=== PATIENT | female | born 2000 | race Caucasian/White ===

== ENCOUNTER 2019-03-15 10:42 | Inpatient (IN) | payer MEDICAID, OTHER ==
[~2019-03-15] VITALS: Ht 162.6 cm; Wt 117.0 kg
[2019-03-15 10:56] VITALS: BP 144/82
--- NOTE | 2019-03-15 11:10 | NUR ---
Note undone in EDM - 03/15/19 at 1220 by [facility] PT C/O ovary cyst removal IN . Pt felt suprapubic region pain since two days ago, went to urgent care yesterday. No redness noted but see some secration. BURNING 05/15. DENIES N/V/D; SKIN IS PINK/WARM/DRY; AAOX4 WITH EVEN AND STEADY GAIT; PT DENIES ANY FEVER, CP, SOB, OR COUGH AT THIS TIME; PATIENT STATES PAIN OF 0/10 AT THIS TIME; VSS; PATIENT POSITIONED FOR COMFORT; HOB ELEVATED; BEDRAILS UP X1; BED DOWN. ER MADE AWARE OF PT STATUS.
--- NOTE | 2019-03-15 11:10 | NUR ---
PT C/O ovary cyst removal IN . Pt felt LOWER ABDOMINAL pain since two days ago, went to urgent care yesterday. No redness noted but see some secration. BURNING 05/15. DENIES N/V/D; SKIN IS PINK/WARM/DRY; AAOX4 WITH EVEN AND STEADY GAIT; PT DENIES ANY FEVER, CP, SOB, OR COUGH AT THIS TIME; PATIENT STATES PAIN OF 0/10 AT THIS TIME; VSS; PATIENT POSITIONED FOR COMFORT; HOB ELEVATED; BEDRAILS UP X1; BED DOWN. ER MD MADE AWARE OF PT STATUS.
[2019-03-15] MEDS ORDERED: VANCOMYCIN 1,000 MG in DEXTROSE 5% 250 ML IV ONE (12:20)
[2019-03-15] MEDS ORDERED: NACL 0.9% 2,000 ML IV SCH (12:20)
[2019-03-15] MEDS ORDERED: CEPH500C16 PO (12:23)
[2019-03-15] MEDS ORDERED: IBUP-1842 PO (12:23)
[2019-03-15] MEDS ORDERED: IBUP-2213 PO (12:26)
--- NOTE | 2019-03-15 12:30 | NUR ---
unable to obtain ABG. Will attempt again at a later time.
[2019-03-15 12:53] LABS: BASOPHILS # (AUTO) 0.1 K/uL (0.00-0.22); BASOPHILS % (AUTO) 0.5 % (0.0-2.0); EOSINOPHILS # (AUTO) 0.2 K/uL (0-0.4); EOSINOPHILS % (AUTO) 1.7 % (0.0-4.0); HEMATOCRIT 40.8 % (36-48); HEMOGLOBIN 13.4 g/dL (12.0-16.0); LYMPHOCYTES # (AUTO) 2.1 K/uL (2.5-16.5); LYMPHOCYTES % (AUTO) 17.7 % (20.5-51.1); MEAN CORPUSCULAR HEMOGLOBIN 25 pg (27-31); MEAN CORPUSCULAR HGB CONC 33 g/dL (33-37); MEAN CORPUSCULAR VOLUME 75.4 fL (80-94); MONOCYTES # (AUTO) 0.6 K/uL (0.8-1.0); MONOCYTES % (AUTO) 5.5 % (1.7-9.3); NEUTROPHILS # (AUTO) 8.6 K/uL (1.8-7.7); NEUTROPHILS % (AUTO) 74.6 % (42.2-75.2); PLATELET COUNT (AUTO) 332 K/uL (140-450); RED BLOOD CELL COUNT(AUTO) 5.41 MIL/uL (4.20-5.40); RED CELL DISTRIBUTION WIDTH 13.7 % (11.6-13.7); WHITE BLOOD COUNT (AUTO) 11.6 K/uL (4.5-11.0)
[2019-03-15] MEDS ORDERED: VANCOMYCIN 1,000 MG VIAL ONE (12:55)
[2019-03-15 13:07] LABS: ANION GAP 14.9 (8-16); CARBON DIOXIDE 26.1 mmol/L (21-32); CHLORIDE 99 mmol/L (98-107); CREATININE 0.7 mg/dL (0.6-1.3); GFR ARICAN-AMERICAN 137 mL/min (>90); GLUCOSE 184 mg/dL (74-106); SODIUM SERUM 136 mmol/L (136-145); UREA NITROGEN, BLOOD 9 mg/dL (7-18)
[2019-03-15 13:10] LABS: PROTHROMBIN TIME 9.9 secs (10.8-13.4)
[2019-03-15 13:11] LABS: ACETONE, SERUM NEGATIVE (NEGATIVE)
--- NOTE | 2019-03-15 13:19 | NUR ---
PATIENT OUT OF ROOM JUTE BAG CLIPPER TO ATTEMPT ABG AT A LATER TIME
[2019-03-15 13:21] LABS: ALBUMIN 3.9 g/dL (3.4-5.0); TOTAL BILIRUBIN 0.6 mg/dL (0.0-1.0)
[2019-03-15 13:25] LABS: BARBITURATE, URINE NEG. ng/ml (NEG <=200); BENZODIAZEPINE, URINE NEG. ng/mL (NEG <=200); CANNABINOID, URINE NEG. ng/mL (NEG <=50); COCAINE, URINE NEG. ng/mL (NEG <=300); OPIATE, URINE NEG. ng/mL (NEG <=2000); PHENCYCLIDINE SCREEN,URINE NEG. ng/mL (NEG <=25)
[2019-03-15] MEDS ORDERED: VANCOMYCIN PER PHARMACY MC PRN (13:30)
[2019-03-15] MEDS ORDERED: ACETAMINOPHEN 325 MG TAB PO PRN (13:30)
[2019-03-15] MEDS ORDERED: ONDANSETRON 4 MG/2 ML VIAL IVP PRN ×2 (13:30→18:35)
[2019-03-15] MEDS ORDERED: ALBUTEROL 0.083% 2.5 MG/3 ML NEBU INH PRN (13:30)
[2019-03-15] MEDS ORDERED: MORPHINE SULFATE 4 MG/ML SYR IVP PRN (13:30)
--- NOTE | 2019-03-15 13:30 | NUR ---
PT'S ABDOMINAL WOUND CULTURE COLLECTED AND SENT TO THE LAB.
[2019-03-15 13:34] LABS: ASPARTATE AMINOTRANSFERASE 44 U/L (15-37)
--- NOTE | 2019-03-15 13:39 | NUR ---
Dr. Wilson evaluating patient at bedside.
[2019-03-15 13:53] LABS: APPEARANCE,URINE HAZY (CLEAR); COLOR,URINE AMBER (YELLOW)
[2019-03-15 13:54] LABS: BILIRUBIN,URINE 1+ (NEGATIVE); BLOOD, URINE 3+ (NEGATIVE); LEUKOCYTE ESTERASE ,URINE 1+ (NEGATIVE); NITRITE, URINE NEGATIVE (NEGATIVE); UGLUCOSE NEGATIVE (NEGATIVE)
[2019-03-15 13:58] LABS: RBC,URINE 80-100 /HPF (0-5)
--- NOTE | 2019-03-15 14:10 | NUR ---
VERBAL ORDER RECEIVED FROM DR. DUPONT. PT IS ON NPO.
--- NOTE | 2019-03-15 14:40 | NUR ---
Patient will be admitted to care of [facility]. Admited to [facility]. Will go to room 105B. Belongings list completed. Report to DOYLE Gallegos.
[2019-03-15 15:30] VITALS: BP 151/86
--- NOTE | 2019-03-15 15:30 | NUR ---
RECEIVED ENDORSEMENT FROM SERENE KWON. PATIENT IS AAOX4, CYMRAES SPEAKING. RESPIRATIONS ARE EVEN AND UNLABORED ON ROOM AIR. PATIENT DENIES ANY PAIN. RIGHT AC 20G IV INTACT, PATENT, AND INFUSING IVF. PLAN OF CARE WAS REVIEWED WITH PATIENT, PATIENT VERBALIZED UNDERSTANDING. SAFETY MEASURES IN PLACE, CALL LIGHT WITHIN REACH.
[2019-03-15] MEDS: DEXT 5% /NACL 0.9% 1,000 ML IV SCH ×3 (15:44→23:30)
--- NOTE | 2019-03-15 17:45 | NUR ---
PATIENT OFF UNIT FOR I&D, WILL MONITOR UPON ARRIVAL.
[2019-03-15] MEDS ORDERED: BUPIVACAINE-MPF/EPI 0.25% 30 ML VIAL INJ ONE ×2 (17:53→18:38)
[2019-03-15] MEDS ORDERED: fentaNYL 0.05 MG/ML VIAL ONE (18:19)
[2019-03-15] MEDS ORDERED: HYDROmorphone 1 MG/ML AMP IVP PRN (18:35)
[2019-03-15 19:20] VITALS: BP 139/86
--- NOTE | 2019-03-15 19:20 | NUR ---
ENDORSED TO SAS PROGRAMMER NURSE FOR CONTINUITY OF CARE. PATIENT IS STABLE AT THIS TIME.
--- NOTE | 2019-03-15 19:21 | NUR ---
RECD. FROM OR VIA BED, AWAKE, A/OX4. RESPIRATION EVEN AND UNLABORED. IV SALINE LOCK AT THE RIGHT AC G 20, PATENT AND INTACT. S/P I & D OF LOWER ABDOMINAL WALL ABSCESS. INCISION IN THE ABDOMEN COVERED WITH DRESSING DRY AND INTACT. VS STABLE. DENIES PAIN 09/14, AT THIS TIME. WILL CONTINUE TO MONITOR PAIN AND MEDICATE ORDERED. FAMILY AT THE BEDSIDE.
[2019-03-15 20:30] VITALS: BP 136/78
--- NOTE | 2019-03-15 20:30 | NUR ---
RESTING COMFORTABLY SLEEPING IN BED. NO APPEARANCE OF PAIN NOTED.
[2019-03-15] MEDS: HYDROcodone/APAP 5/325 MG 1 TAB TAB PO PRN (20:36)
[2019-03-15] MEDS: VANCOMYCIN 1,250 MG in DEXTROSE 5% 250 ML IV SCH (21:53)
--- NOTE | 2019-03-15 22:00 | NUR ---
NPO EXCEPT MEDS. ICE CHIPS GIVEN.
[2019-03-16] VITALS: BP 117/68
--- NOTE | 2019-03-16 | NUR ---
SLEEPING COMFORTABLY IN BED. VS STABLE.
--- NOTE | 2019-03-16 01:10 | NUR ---
Patient's Plan of Care was discussed and reviewed with GEOSPATIAL SYSTEMS INTEGRATOR: NINA ENRIQUEZ
--- NOTE | 2019-03-16 01:30 | NUR ---
AMBULATLED TO BR TO VOID, BACK TO BED AFTER VOIDING.
--- NOTE | 2019-03-16 02:30 | NUR ---
SLEEPING COMFORTABLY IN BED.
[2019-03-16] MEDS: VANCOMYCIN 1,250 MG in DEXTROSE 5% 250 ML IV SCH ×3 (04:23→22:24)
--- NOTE | 2019-03-16 05:30 | NUR ---
AMBULATED TO BR TO VOID, NOT YET PASSING GAS. ENCOURAGED TO AMBULATE MORE.
[2019-03-16 06:36] LABS: BASOPHILS % (AUTO) 0.3 % (0.0-2.0); EOSINOPHILS # (AUTO) 0.2 K/uL (0-0.4); EOSINOPHILS % (AUTO) 2.3 % (0.0-4.0); HEMATOCRIT 35.5 % (36-48); HEMOGLOBIN 11.8 g/dL (12.0-16.0); LYMPHOCYTES # (AUTO) 2.2 K/uL (2.5-16.5); LYMPHOCYTES % (AUTO) 22.5 % (20.5-51.1); MEAN CORPUSCULAR HEMOGLOBIN 25 pg (27-31); MEAN CORPUSCULAR HGB CONC 33 g/dL (33-37); MEAN CORPUSCULAR VOLUME 75.8 fL (80-94); MONOCYTES # (AUTO) 0.7 K/uL (0.8-1.0); MONOCYTES % (AUTO) 7.3 % (1.7-9.3); NEUTROPHILS # (AUTO) 6.5 K/uL (1.8-7.7); NEUTROPHILS % (AUTO) 67.6 % (42.2-75.2); PLATELET COUNT (AUTO) 292 K/uL (140-450); RED BLOOD CELL COUNT(AUTO) 4.69 MIL/uL (4.20-5.40); RED CELL DISTRIBUTION WIDTH 13.7 % (11.6-13.7); WHITE BLOOD COUNT (AUTO) 9.7 K/uL (4.5-11.0)
[2019-03-16 06:52] LABS: ANION GAP 13.1 (8-16); CARBON DIOXIDE 26.4 mmol/L (21-32); CREATININE 0.6 mg/dL (0.6-1.3); POTASSIUM 3.5 mmol/L (3.5-5.1)
[2019-03-16 06:59] LABS: MAGNESIUM 1.5 mg/dL (1.8-2.4); PHOSPHORUS 5.1 mg/dL (2.5-4.9)
--- NOTE | 2019-03-16 07:00 | NUR ---
RESTING SLEEPING IN BED, CONDITION REMAIN STABLE. WILL ENDORSED TO AM NURSE FOR CONTINUITY OF CARE.
--- NOTE | 2019-03-16 07:25 | NUR ---
RECEIVED BEDSIDE REPORT FROM FACILITY REHAB DIRECTOR NURSE FOR CONTINUITY OF CARE. PATIENT IS RESTING ON BED AND SISTER IS SITTING BY BEDSIDE. PATIENT IS AAOX4. RESPIRATION EVEN AND UNLABORED ON RA. DENIED PAIN AND SOB AT THIS TIME. NO SIGNS OF DISTRESS NOTED. IV ON RAC 20G, CLEAN AND INTACT, INFUSING PER MD ORDER. S/P I & D OF LOWER ABDOMINAL WALL ABSCESS. INCISION IN THE ABDOMEN COVERED WITH DRESSING DRY AND INTACT. OTHERWISE SKIN IS CLEAN AND DRY. PATIENT IS ABLE TO AMBULATE WITH STEADY GAIT AND CONTINENT. DISCUSSED PLAN OF CARE WITH PATIENT AND PATIENT VERBALIZED UNDERSTANDING. SAFETY MEASURES IN PLACE. BED IN LOW POSITION AND CALL LIGHT WITHIN REACH. INSTRUCTED PATIENT TO USE THE CALL LIGHT FOR ANY ASSISTANCE AND PATIENT WAS AWARE.
[2019-03-16 08:00] VITALS: BP 124/81
[2019-03-16] MEDS ORDERED: MAG SULF 2000 MG/WATER PREMIX 50 ML IV SCH (08:15)
--- NOTE | 2019-03-16 08:18 | NUR ---
PATIENT HAS BEEN SCREENED AND CATEGORIZED HIGH NUTRITION RISK. PATIENT WILL BE SEEN WITHIN 1-2 DAYS OF ADMISSION. 03/16/19-03/17/[address]
--- NOTE | 2019-03-16 08:20 | NUR ---
ADMINISTERED MAG VIA IVPB PER MD ORDER FOR LOW MG 1.5 FROM AM LAB, PATIENT TOLERATED WELL. PATIENT IS AWAKE AND TALKING TO SISTER AT BEDSIDE. DENIED PAIN AND SOB AT THIS TIME. HOB ELEVATED 30 DEGREE. SAFETY MEASURES IN PLACE. BED IN LOW POSITION AND CALL LIGHT WITHIN REACH. INSTRUCTED PATIENT TO USE THE CALL LIGHT FOR ANY ASSISTANCE AND PATIENT WAS AWARE.
[2019-03-16] MEDS: DEXT 5% /NACL 0.9% 1,000 ML IV SCH ×2 (08:34→17:30)
[2019-03-16] MEDS: HYDROcodone/APAP 5/325 MG 1 TAB TAB PO PRN (09:19)
--- NOTE | 2019-03-16 09:19 | NUR ---
PRE-MEDICATED PATIENT FOR PAIN AND DRESSING CHANGE, PATIENT TOLERATED WELL. PATIENT IS AWAKE AND WATCHING TV ON BED. DENIED NAUSEA AND VOMITING. MOTHER IS BY BEDSIDE. NO SIGNS OF DISTRESS NOTED. SAFETY MEASURES IN PLACE. BED IN LOW POSITION AND CALL LIGHT WITHIN REACH. INSTRUCTED PATIENT TO USE THE CALL LIGHT FOR ANY ASSISTANCE AND PATIENT WAS AWARE.
--- NOTE | 2019-03-16 10:00 | NUR ---
WOUND CARE EVALUATION NOTES: REASON FOR EVALUATION: S/P MID LOWER ABDOMINAL I&D SKIN ASSESSMENT DONE ON WITH THIS 18 Y/O FEMALE PATIENT ADMITTED TO [facility] WITH INITIAL DIAGNOSIS OF ABDOMINAL ABSCESS. PAST MEDICAL HX: DM, HTN, OBESITY AND PER PT. OVARIAN CYST REMOVAL WAS DONE NOVEMBER 2011. ALL ABOVE INFORMATION WAS OBTAINED FROM THE ADMISSION H&P. AND PT. PT IS AAX4. MOTHER AT BED SIDE. DRESSING CHANGED AND WOUND CARE INSTRUCTIONS GIVEN WITH DEMONSTRATION. BOTH PT. AND MOTHER VERBALIZES UNDERSTANDING. PLAN OF CARE DISCUSSED WITH PRIMARY RN AND PT. PT. VERBALIZES UNDERSTANDING. INTEGUMENTARY: -SURGICAL WOUND TO MID LOWER ABDOMINAL, [id number] WOUND BED 100% GRANULATING TISSUE, MODERATE AMOUNT SEROSANGUINEOUS DRAINAGE, NO ODOR, WOUND EDGE WELL DEFINED, WITH LANCE-WOUND SKIN DRY AND INTACT. RECOMMENDATIONS: -CLEANSE MID LOWER ABDOMINAL WOUND WITH NS. PAT DRY PACK WITH ADAPTIC DRESSING AND COVER WITH DRY DRESSING, SECURE WITH TAPE QD AND PRN IF SOILING -KEEP AREA DRY AND CLEAN AT ALL TIME -PLEASE FOLLOW UP WITH PCP 7-10 DAYS AFTER DISCHARGED RECOMMENDATIONS DISCUSSED WITH PRIMARY RN. PLEASE CONTACT WOUND CARE NURSE FOR ANY QUESTIONS AND CHANGES IN SKIN CONDITION. Addendum: 03/16/19 at 1120 by Jeff Montenegro RN (Grace) MAY DISCHARGE PT WITH WOUND CARE SUPPLIES.
--- NOTE | 2019-03-16 10:25 | NUR ---
DR CORMIER IS ASSESSING AND TALKING TO PATIENT AT BEDSIDE. NO SIGNS OF DISTRESS NOTED. SAFETY MEASURES IN PLACE. BED IN LOW POSITION AND CALL LIGHT WITHIN REACH. INSTRUCTED PATIENT TO USE CALL LIGHT FOR ANY ASSISTANCE AND PATIENT WAS AWARE.
--- NOTE | 2019-03-16 10:53 | NUR ---
CALLED PT'S PCP DR OVIDIO PALACIO OFFICE [phone] AND MADE F/U APPOINTMENT FOR MARCH 19Tuesday AT 3:30 PM. EXPLAINED TO THE PATIENT THAT F/U SHERLYN WAS MADE AND IF UNABLE TO MAKE IT TO RESCHEDULE IT. PT VERBALIZED UNDERSTANDING. Addendum: 03/16/19 at 1137 by Cammy Quintero CM WRONG PT
[2019-03-16] MEDS ORDERED: ACET-9525 PO (11:00)
[2019-03-16] MEDS ORDERED: DEXTROSE 50% 50 ML SYR IVP PRN (11:00)
--- NOTE | 2019-03-16 11:35 | NUR ---
PATIENT AWAKE AND RESTING ON BED AT THIS TIME. DENIED PAIN. NO SIGNS OF DISTRESS NOTED. MOTHER IS BY BEDSIDE. SAFETY MEASURES IN PLACE. BED IN LOW POSITION AND CALL LIGHT WITHIN REACH. INSTRUCTED PATIENT TO USE CALL LIGHT FOR ANY ASSISTANCE AND PATIENT WAS AWARE.
--- NOTE | 2019-03-16 11:37 | NUR ---
CALLED PATIENTS PCP'S OFFICE MARKUS GONCALVES OFFICE [phone] STATED UNABLE TO MAKE APPOINTMENT PER THEIR POLICY PT HAS TO BE DISCHARGED FROM THE HOSPITAL AND PT HAS TO MAKE THE APPOINTMENT. EXPLAINED TO THE PATIENT TO MAKE F/U SHERLYN PT VERBALIZED UNDERSTANDING.
[2019-03-16] MEDS: BLOOD GLUCOSE MONITORING 1 DEV DEV FS SCH ×3 (12:19→20:50)
[2019-03-16] MEDS: INSULIN LISPRO SLIDING SCALE 100 UNITS/ML VIAL SUBQ PRN ×2 (12:22→21:01)
--- NOTE | 2019-03-16 13:04 | NUR ---
ADMINISTERED MED PER MD ORDER, PATIENT TOLERATED WELL. PATIENT AWAKE AND RESTING ON BED. PATIENT DENIED OF NAUSEA AND VOMITING AFTER LUNCH. PATIENT STATED, " I FEEL MUCH BETTER AFTER EATING SOME SOUP." PATIENT DENIED PAIN AND SOB. MOTHER IS BY BEDSIDE. SAFETY MEASURES IN PLACE. BED IN LOW POSITION AND CALL LIGHT WITHIN REACH. INSTRUCTED PATIENT TO USE CALL LIGHT FOR ANY ASSISTANCE AND PATIENT WAS AWARE.
--- NOTE | 2019-03-16 13:51 | NUR ---
03/16/19 RD INITIAL ASSESSMENT COMPLETED PLEASE REFER TO NUTRITION ASSESSMENT UNDER CARE ACTIVITY FOR ESTIMATED NUTRITIONAL NEEDS. 1. CONTINUE CLEAR LIQUIDS NCS DIET TOLERATED 2. IF/WHEN PATIENT IS MEDICALLY STABLE CONSIDER ADVANCING TO [facility] [address]. RD PROVIDED PATIENT AND FAMILY DIABETES NUTRITION EDUCATION 4. RD TO FOLLOW-UP 5-7 DAYS, LOW RISK ABHILASH HOOPER RD
--- NOTE | 2019-03-16 15:10 | NUR ---
PATIENT IS SLEEPING ON BED AT THIS TIME. EVEN RISE CHEST RISES NOTED. NO SIGNS OF DISTRESS. MOTHER IS BY BEDSIDE. SAFETY MEASURES IN PLACE. BED IN LOW POSITION AND CALL LIGHT WITHIN REACH.
[2019-03-16 16:00] VITALS: BP 126/81
--- NOTE | 2019-03-16 16:41 | NUR ---
PATIENT COMPLAINED 2/10 HEADACHE, MEDICATED WITH PRN PAIN MED ACETAMINOPHEN PER MD ORDER, PATIENT TOLERATED WELL. PATIENT AWAKE AND RESTING ON BED. MOTHER IS BY BEDSIDE. SAFETY MEASURES IN PLACE. BED IN LOW POSITION AND CALL LIGHT WITHIN REACH. INSTRUCTED PATIENT TO USE CALL LIGHT FOR ANY ASSISTANCE AND PATIENT WAS AWARE.
[2019-03-16] MEDS: metFORMIN 500 MG TAB PO SCH (17:28)
--- NOTE | 2019-03-16 17:31 | NUR ---
ADMINISTERED MED PER MD ORDER, PATIENT TOLERATED WELL. PATIENT AWAKE AND SITTING ON BED. DENIED PAIN AT THIS TIME. MOTHER IS BY BEDSIDE. SAFETY MEASURES IN PLACE. BED IN LOW POSITION AND CALL LIGHT WITHIN REACH. INSTRUCTED PATIENT TO USE CALL LIGHT FOR ANY ASSISTANCE AND PATIENT WAS AWARE.
--- NOTE | 2019-03-16 18:58 | NUR ---
PATIENT COMPLAINED OF FEELING NAUSEA AND VOMITING, ADMINISTERED ZOFRAN PER MD ORDER, PATIENT TOLERATED WELL. FAMILY IS BY BEDSIDE. PROVIDED PATIENT WITH VOMIT BAGS. SAFETY MEASURES IN PLACE. BED IN LOW POSITION AND CALL LIGHT WITHIN REACH. INSTRUCTED PATIENT TO USE CALL LIGHT FOR ANY ASSISTANCE AND PATIENT WAS AWARE.
--- NOTE | 2019-03-16 19:30 | NUR ---
ENDORSED PATIENT AT BEDSIDE TO BARBER TOOL SHARPENER NURSE FOR CONTINUITY OF CARE. PATIENT IS IN STABLE CONDITION. FAMILY IS BY BEDSIDE.
--- NOTE | 2019-03-16 19:31 | NUR ---
RECEIVED BEDSIDE REPORT FROM DAY RN. PT IS AAOX4. ON ROOM AIR. RESPIRATIONS ARE EQUAL AND UNLABORED. PT IS RESTING IN BED. WITH FAMILY AT BEDSIDE. S/P I&D OF ABD ABSCESS ON 03/15. DRESSING WAS CHANGED TODAY BY WOUND NURSE. DRESSING IS C/D/I. PATIENT IS AMBULATORY PASSING GAS. IV ON RAC 20G D5NS @ 100.M/H. STATES ONLY COMPLAIN OF ANTUNEZ AND IT IS TOLERABLE AT THE MOMENT. PLAN OF CARE DISCUSSED WITH PT AND FAMILY. CALL LIGHT IS WITHIN REACH. WILL CONTINUE TO MONITOR.
--- NOTE | 2019-03-16 21:01 | NUR ---
BLOOD SUGAR IS 212. 4U OF INSULIN GIVEN PER ORDERS. SNACK AT BEDSIDE. CALL LIGHT IS WITHIN REACH. WILL CONTINUE TO MONITOR.
--- NOTE | 2019-03-16 22:24 | NUR ---
VANCO TROUGH JUST CAME BACK WITHIN RANGE. VANCO NOW INFUSING. ALL NEEDS MET WILL CONTINUE TO MONITOR.
[2019-03-16 23:03] VITALS: BP 118/73
--- NOTE | 2019-03-16 23:04 | NUR ---
VITAL SIGNS ARE WITHIN NORMAL LIMITS. ALL NEEDS MET AT THIS TIME. CALL LIGHT IS WITHIN REACH. WILL CONTINUE TO MONITOR.
[2019-03-16 23:06] VITALS: BP 144/76
--- NOTE | 2019-03-17 01:07 | NUR ---
PATIENT IS SLEEPING COMFORTABLY IN BED. SAFETY MEASURES ARE IN PLACE. WILL CONTINUE TO MONITOR.
--- NOTE | 2019-03-17 04:00 | NUR ---
PATIENT IS SLEEPING COMFORTABLY IN BED. NO S/S OF DISTRESS. SAFETY MEASURES ARE IN PLACE. WILL CONTINUE TO MONITOR.
[2019-03-17] MEDS: DEXT 5% /NACL 0.9% 1,000 ML IV SCH (05:03)
[2019-03-17] MEDS: BLOOD GLUCOSE MONITORING 1 DEV DEV FS SCH (05:31)
[2019-03-17] MEDS: VANCOMYCIN 1,250 MG in DEXTROSE 5% 250 ML IV SCH (05:31)
--- NOTE | 2019-03-17 05:31 | NUR ---
SCHEDULED MEDICATIONS GIVEN. PATIENT TOLERATED WELL. NO S/S OF DISTRESS. WILL CONTINUE TO MONITOR.
[2019-03-17] MEDS ORDERED: glipiZIDE 5 MG TAB PO SCH (06:30)
--- NOTE | 2019-03-17 07:20 | NUR ---
GAVE BEDSIDE REPORT TO DAY RN. PATIENT ENDORSED IN STABLE CONDITION.
--- NOTE | 2019-03-17 07:21 | NUR ---
RECEIVED BEDSIDE REPORT FROM RAMP MANAGER NURSE. PATIENT IS SLEEPING. NO SIGNS OF DISTRESS ON RA. AMBULATORY. CONTINENT. IV ON R AC 20G INFUSING D5NS AT 100. CLEAN, DRY AND INTACT. SKIN HAS A SURGICAL INCISION IN MID ABDOMEN. DRESSING IS CLEAN, DRY AND INTACT. PATIENT ON FULL LIQ DIET, SHE SAID SHE WAS NAUSEATED DINNER TIME YESTERDAY. I TOLD HER IF SHE TOLERATES HER FULL LIQ BREAKFAST I WILL ADVANCE HER DIET FOR LUNCH PER ORDERS. PATIENT ABLE TO MAKE NEEDS KNOWN. FAMILY AT BEDSIDE. WILL CONTINUE TO MONITOR THE PATIENT
[2019-03-17 07:46] LABS: ANION GAP 14.6 (8-16); CREATININE 0.5 mg/dL (0.6-1.3); POTASSIUM 3.6 mmol/L (3.5-5.1)
[2019-03-17 07:55] LABS: BASOPHILS # (AUTO) 0.1 K/uL (0.00-0.22); EOSINOPHILS # (AUTO) 0.3 K/uL (0-0.4); MONOCYTES # (AUTO) 0.6 K/uL (0.8-1.0); NEUTROPHILS # (AUTO) 5.4 K/uL (1.8-7.7)
[2019-03-17 08:00] VITALS: BP 129/86
[2019-03-17 08:03] LABS: MAGNESIUM 1.8 mg/dL (1.8-2.4); PHOSPHORUS 3.8 mg/dL (2.5-4.9)
[2019-03-17 08:09] LABS: BASOPHILS % (AUTO) 0.6 % (0.0-2.0); EOSINOPHILS % (AUTO) 3.7 % (0.0-4.0); HEMATOCRIT 34.5 % (36-48); HEMOGLOBIN 11.4 g/dL (12.0-16.0); LYMPHOCYTES # (AUTO) 2.4 K/uL (2.5-16.5); LYMPHOCYTES % (AUTO) 27.1 % (20.5-51.1); MEAN CORPUSCULAR HEMOGLOBIN 25 pg (27-31); MEAN CORPUSCULAR HGB CONC 33 g/dL (33-37); MEAN CORPUSCULAR VOLUME 76.3 fL (80-94); MONOCYTES % (AUTO) 6.7 % (1.7-9.3); NEUTROPHILS % (AUTO) 61.9 % (42.2-75.2); PLATELET COUNT (AUTO) 319 K/uL (140-450); RED BLOOD CELL COUNT(AUTO) 4.51 MIL/uL (4.20-5.40); RED CELL DISTRIBUTION WIDTH 13.6 % (11.6-13.7); WHITE BLOOD COUNT (AUTO) 8.7 K/uL (4.5-11.0)
[2019-03-17] MEDS: metFORMIN 500 MG TAB PO SCH (08:14)
--- NOTE | 2019-03-17 08:14 | NUR ---
ADMINISTERED MEDS. PATIENT TOLERATED WELL. EDUCATED ON SIDE EFFECTS. WILL CONTINUE TO MONITOR THE PATIENT.
--- NOTE | 2019-03-17 09:29 | NUR ---
FAMILY AT BEDSIDE. PATIENT SHOWS NO SIGNS OF DISTRESS. PATIENT AMBULATED AROUND THE HALLS. PATIENT STATES SHE PASSED GAS, HAD A BM AND TOLERATED BREAKFAST WELL. WILL ADVANCE DIET FOR LUNCH
--- NOTE | 2019-03-17 10:39 | NUR ---
CALLED YAHAIRA FROM [facility] AT [phone]. SHE SAID SHE WILL CALL ME BACK ABOUT HOME HEALTH
--- NOTE | 2019-03-17 10:49 | NUR ---
YAHAIRA CALLED BACK. SHE TOLD DR DARDEN THAT HOME HEALTH CANNOT BE SET UP TILL TUESDAY BECAUSE THE PATIENT IS UNDER [facility] AND THEY ARE CLOSED ON THE WEEKEND. DR DARDEN SAID PATIENT CAN LEAVE AND CAN MISS HOME HEALTH FOR A DAY.
[2019-03-17] MEDS ORDERED: SULF-59 PO (10:55)
[2019-03-17] MEDS ORDERED: METF500T PO (10:57)
[2019-03-17] MEDS ORDERED: GLIP5TAB4 PO (10:57)
--- NOTE | 2019-03-17 11:01 | NUR ---
PATIENTS CONFIRMED ADDRESS IS [address] [place] [id number]. CONFIRMED PHONE NUMBER IS [phone]
--- NOTE | 2019-03-17 11:57 | NUR ---
EDUCATED PATIENT ON DISEASE PROCESS, ABN S/SX, WHEN TO GO TO THE ER, EDUCATED ON WOUND CARE, GAVE WOUND CARE SUPPLIES, EDUCATED ON MEDS AND GAVE PRESCRIPTIONS, FOLLOW UP INFORMATION GIVEN, FOLLOW UP W PCP AND DR THORPE. PATIENT VERBALIZED UNDERSTANDING. SIGNED ALL PAPERWORK. PATIENT IS AWARE THAT HOME HEALTH WILL BE SET UP ON TUESDAY. PNA VACCINE NOT A CANDIDATE, FLU NOT IN SEASON. PATIENT TO CHANGE AND LEAVE AFTER CHANGED. WOUND CARE DONE, PATIENT REFUSED PICTURE,
--- NOTE | 2019-03-17 12:15 | NUR ---
IV REMOVED. ID BANDS REMOVED. PATIENT LEFT IN STABLE CONDITION WITH FAMILY
[2019-03-17] MEDS ORDERED: VANCOMYCIN 1,500 MG in NACL 0.9% 500 ML IV SCH (13:00)
== END 2019-03-17 12:15 | disposition home health service (06) | DRG 383 ==
LOC: MED 10:42 → MTU 13:30
PROVIDERS: ADMIT Internal Medicine Pulmonary Disease; ATTEND Internal Medicine Pulmonary Disease
PROC: 0JB80ZZ Excision of Abdomen Subcutaneous Tissue and Fascia, Open Approach (ICD-10-PCS; principal; 2019-03-15 17:30)
DX: L02.211 Cutaneous abscess of abdominal wall (principal); E11.65 Type 2 diabetes mellitus with hyperglycemia; E66.9 Obesity, unspecified; I10 Essential (primary) hypertension; L03.311 Cellulitis of abdominal wall; Z79.899 Other long term (current) drug therapy
CPT/HCPCS: 36415; 36600; 76536; 80048; 80053; 80202; 80305; 81001; 81025; 82009; 82803; 82948; 83036; 83605; 83735; 84100; 85025; 85610; 87040; 87070; 87075; 87081; 87086; 87205; 88304; 93005; 96365; 96366; 99285; J0696; J1815; J2405; J3010; J3370; J3475; J3490; J7030; J7042; J7060; Q0092

== ENCOUNTER 2019-09-01 09:00 | Emergency (ER) | payer OTHER ==
[~2019-09-01] VITALS: Ht 162.6 cm; Wt 90.7 kg
[~2019-09-01 09:00] MED LIST: ACET-9525 PO; GLIP5TAB4 PO; METF500T PO; SULF-59 PO
--- NOTE | 2019-09-01 09:04 | NUR ---
Patient ambulated to bed 9. RN evaluating patient at bedside.
[2019-09-01 09:05] VITALS: BP 156/93
--- NOTE | 2019-09-01 09:13 | NUR ---
18/F bib mother c/o cough, rhinorrhea, nasal congestion, sore throat since 08/29/19 with intermittent nose bleed for last 2 days. Epistaxis happens more in the morning, nighttime and middle of day. Occurs after coughing and bleeding would continue for 10 minutes after cough and then stop. Estimates bleeding occurs for approx 3x/daily for last 2 days. Reports dryness in nostrils. Blood noted in bilateral nares, not actively bleeding. hx DM no meds
--- NOTE | 2019-09-01 09:18 | NUR ---
Dr. Magallanes evaluating pt at bedside.
--- NOTE | 2019-09-01 10:20 | NUR ---
Dr. Magallanes is evaluating the patient at bedside.
[2019-09-01 11:03] VITALS: BP 138/70
--- NOTE | 2019-09-01 11:03 | NUR ---
Patient discharged with v/s stable. Written and verbal after care instructions given and explained. Patient alert, oriented and verbalized understanding of instructions. Ambulatory with steady gait. All questions addressed prior to discharge. ID band removed. Patient advised to follow up with PMD. Rx of ATARAX AND FLONASE given. Patient educated on indication of medication including possible reaction and side effects. Opportunity to ask questions provided and answered.
== END 2019-09-01 11:03 | disposition home or self-care (01) ==
LOC: MED 09:00
DX: J06.9 Acute upper respiratory infection, unspecified (principal); E10.9 Type 1 diabetes mellitus without complications; E66.01 Morbid (severe) obesity due to excess calories; I10 Essential (primary) hypertension
CPT/HCPCS: 81025; 87804; 99283

== ENCOUNTER 2020-04-17 12:06 | Emergency (ER) | payer OTHER ==
[~2020-04-17] VITALS: Ht 162.6 cm; Wt 113.4 kg
[2020-04-17 12:11] VITALS: BP 161/102
--- NOTE | 2020-04-17 13:05 | NUR ---
C/O L EYE REDNESS WITH PAIN. PT STATES INCREASED TEAR PRODUCTION X 1 WEEK. PT DENIES DIRECT SUNLIGHT OR ALLERGIES. PT STATES MINOR BLURRY VISION. HR 113. PT ALERT AND AWAKE. AMBULATORY. DENIES PMH
[2020-04-17 13:26] VITALS: BP 154/92
--- NOTE | 2020-04-17 13:26 | NUR ---
Patient discharged with v/s stable. Written and verbal after care instructions given and explained REGARDING PINK EYE Patient alert, oriented and verbalized understanding of instructions. Ambulatory with steady gait. All questions addressed prior to discharge. ID band removed. Patient advised to follow up with PMD. Rx of PATADAY OPHTHALMIC SOLUTION given. Patient educated on indication of medication including possible reaction and side effects. Opportunity to ask questions provided and answered. PT ISNTRUCTED THAT ANTIBIOTICS ARE NOT NEEDED THIS IS A VIRAL INFECTION INSTRUCTED TO KEEP EYE CLEAN AND AVIOD EYE MAKEUP, USE COOL WASHCLOTH FOR RELIEF
== END 2020-04-17 13:26 | disposition home or self-care (01) ==
LOC: MED 12:06
DX: B30.9 Viral conjunctivitis, unspecified (principal); E11.9 Type 2 diabetes mellitus without complications; I10 Essential (primary) hypertension
CPT/HCPCS: 99283

== ENCOUNTER 2020-04-28 11:56 | Emergency (ER) | payer OTHER ==
[~2020-04-28] VITALS: Ht 162.6 cm; Wt 117.9 kg
[2020-04-28 12:00] VITALS: BP 163/93
--- NOTE | 2020-04-28 12:12 | NUR ---
19 Y/O FEMALE C/O BLURRED VISION AND EYE PAIN X1 WEEK. PT STATES THAT SHE CAME TO ER LAST WEEK AND WAS TREATED FOR PINK EYE, GIVEN ANTIBIOTIC EYE DROPS., WHICH SHE TOOK FOR 1 WEEK. PT STATES HER VISION BEGAN GETTING BLURRY AND SHE WAS HAVING DULL EYE PAIN. SCLERA IS RED W/ CONJUNCTIVITS. PERRA 3MM. NO DISCHARGE OR ITCHINESS NOTED. NO PMH NKA
--- NOTE | 2020-04-28 12:17 | NUR ---
DR. BELTRAN AT BEDSIDE EVALUATING PT
[2020-04-28] MEDS ORDERED: TETRACAINE HCL/PF 0.5% OPTH 4 ML BTL OP ONE (12:20)
[2020-04-28 13:54] VITALS: BP 154/93
--- NOTE | 2020-04-28 13:56 | NUR ---
Patient discharged with v/s stable. Written and verbal after care instructions given and explained. Patient verbalized understanding. Ambulatory with steady gait. All questions addressed prior to discharge. Advised to follow up with PMD.
== END 2020-04-28 13:56 | disposition home or self-care (01) ==
LOC: MED 11:56
DX: H53.8 Other visual disturbances (principal); E11.9 Type 2 diabetes mellitus without complications; I10 Essential (primary) hypertension; Z98.890 Other specified postprocedural states
CPT/HCPCS: 70450; 99284

== ENCOUNTER 2021-12-31 07:34 | Emergency (ER) | payer OTHER ==
[~2021-12-31] VITALS: Ht 162.6 cm; Wt 113.4 kg
[2021-12-31 07:36] VITALS: BP 130/100
--- NOTE | 2021-12-31 07:44 | NUR ---
PT W/C TO BED 11.
--- NOTE | 2021-12-31 07:50 | NUR ---
21 Y/O FEMALE C/O BILATERAL UPPER ARMS AND KNEES PAIN 06/14 DESCRIBES ACHING X1DAY. PT STATES SHE WAS LIFTING BOXES. DENIES TRAUMA/INJURY. BLOOD SUGAR 313 AT THIS TIME. PMH: DM TYPE2 MED: METFORMIN NKA
--- NOTE | 2021-12-31 07:52 | NUR ---
DR GARCIA AT BEDSIDE EVALUATING PT
[2021-12-31] MEDS ORDERED: CYCL-711 PO (07:58)
[2021-12-31] MEDS ORDERED: IBUP-2213 PO (07:58)
[2021-12-31] MEDS ORDERED: DICL100G5 TP (07:58)
[2021-12-31] MEDS ORDERED: KETOROLAC 60 MG/2 ML VIAL IM ONE (08:00)
[2021-12-31] MEDS ORDERED: CYCLOBENZAPRINE 10 MG TAB PO ONE (08:00)
--- NOTE | 2021-12-31 08:56 | NUR ---
PT RESTING, VSS, WILL CONTINUE TO MONITOR.
[2021-12-31 08:59] VITALS: BP 116/86
--- NOTE | 2021-12-31 08:59 | NUR ---
Patient discharged with v/s stable. Written and verbal after care instructions given FOR MUSCLE STRAIN and explained. Patient alert, oriented and verbalized understanding of instructions. Ambulatory with steady gait. All questions addressed prior to discharge. ID band removed. Patient advised to follow up with PMD. Rx of FLEXERIL, DICLOFENAC, AND IBUPROFEN given. Patient educated on indication of medication including possible reaction and side effects. Opportunity to ask questions provided and answered.
== END 2021-12-31 08:59 | disposition home or self-care (01) ==
LOC: MED 07:34
DX: S46.912A Strain of unspecified muscle, fascia and tendon at shoulder and upper arm level, left arm, initial encounter (principal); S46.911A Strain of unspecified muscle, fascia and tendon at shoulder and upper arm level, right arm, initial encounter; E11.9 Type 2 diabetes mellitus without complications; I10 Essential (primary) hypertension; X58.XXXA Exposure to other specified factors, initial encounter; Y93.89 Activity, other specified; Y92.89 Other specified places as the place of occurrence of the external cause; Y99.8 Other external cause status
CPT/HCPCS: 96372; 99283; J1885